=== PATIENT | female | born 1965 | race Caucasian/White ===

== ENCOUNTER 2023-01-16 07:14 | Day surgery (SDC) | payer OTHER ==
[~2023-01-16] VITALS: Ht 160 cm; Wt 125.2 kg
[2023-01-16] MEDS ORDERED: MIDAZOLAM 5 MG/5 ML VIAL ONE (07:33)
[2023-01-16] MEDS ORDERED: diphenhydrAMINE 50 MG/ML VIAL ONE (07:33)
[2023-01-16] MEDS ORDERED: fentaNYL citrate 0.05 MG/ML VIAL ONE (07:33)
[2023-01-16] MEDS ORDERED: diphenhydrAMINE 50 MG/ML VIAL IVP ONE (09:35)
[2023-01-16] MEDS ORDERED: fentaNYL citrate 0.05 MG/ML VIAL IVP ONE (09:35)
[2023-01-16] MEDS ORDERED: MIDAZOLAM 5 MG/5 ML VIAL IV ONE (09:35)
== END 2023-01-16 09:55 | disposition home or self-care (01) ==
LOC: MMU 07:14 → MDS 07:14
PROVIDERS: ATTEND Internal Medicine Gastroenterology
DX: Z12.11 Encounter for screening for malignant neoplasm of colon (principal); D12.5 Benign neoplasm of sigmoid colon; K31.89 Other diseases of stomach and duodenum; K57.30 Diverticulosis of large intestine without perforation or abscess without bleeding; R10.13 Epigastric pain; K21.00 Gastro-esophageal reflux disease with esophagitis, without bleeding; I10 Essential (primary) hypertension; M81.0 Age-related osteoporosis without current pathological fracture; K29.70 Gastritis, unspecified, without bleeding; Z79.899 Other long term (current) drug therapy
CPT/HCPCS: 43239; 45385; 88305; 88312; 88313; 88342; J1200; J2250; J3010